=== PATIENT | male | born 1970 | race Caucasian/White ===

== ENCOUNTER 2023-05-14 11:32 | Outpatient (CLI) | payer OTHER, SELFPAY ==
--- NOTE | 2023-05-14 13:13 | W.ANESCHARGE ---
Anesthesia Charges Start Date/Time Anesthesia Start Date: 05/14/23 Anesthesia Start Time: 12:37 Stop Date/Time Anesthesia Stop Date: 05/14/23 Anesthesia Stop Time: 13:06
== END 2023-05-14 11:33 | disposition home or self-care (01) ==
PROVIDERS: PCP Family Medicine; Visit Provider Internal Medicine Gastroenterology
DX: K63.5 Polyp of colon (principal); K64.8 Other hemorrhoids; K57.30 Diverticulosis of large intestine without perforation or abscess without bleeding; Z86.010 Personal history of colon polyps
CPT/HCPCS: 00811; 45385; 88305; J2704

== ENCOUNTER 2024-12-13 14:27 | Outpatient (CLI) | payer OTHER, SELFPAY | END 2024-12-13 14:28 | disposition home or self-care (01) | LOC: NFLDUCREF 14:28 | PROVIDERS: PCP Family Medicine; Visit Provider Physician Assistant | DX: S20.462A Insect bite (nonvenomous) of left back wall of thorax, initial encounter (principal); W57.XXXA Bitten or stung by nonvenomous insect and other nonvenomous arthropods, initial encounter | CPT/HCPCS: 86618 ==